=== PATIENT | male | born 1980 | race Caucasian/White ===

== ENCOUNTER 2017-02-07 04:07 | Emergency (ER) | payer BC ==
--- NOTE | 2017-02-07 06:44 | ER ---
ADMIT: 02/07/2017 RM/LOC: ER [facility] MR#: [id number] [address] [address] KEVIN LOPEZ , Emergency Room Report SEX: M AGE: 36 : 1980 DATE: 02/07/2017 The patient is a 36-year-old [place] male, complaining of pleuritic left scapular pain without URI symptoms, injury, fevers, chills, cough, or hemoptysis. Past medical history entirely unremarkable. Exam remarkable for nontoxic, afebrile male. Splinting respirations. Chest x-ray PA and lateral unremarkable. Normal CBC, CMP, CRP, lactic, troponin, and D-dimer. Received IV fluids and Toradol with relief of pain. EKG showed sinus rhythm without ST- T or Q-wave change. Discharged with naproxen 500 mg b.i.d. #30. Follow up Dr. Oliveros as needed. Hiren Lackey MD/ jameel JOB #: [id number] CC: Hiren Lackey MD, Attending Physician Odalis Oliveros MD
== END 2017-02-07 05:26 | disposition home or self-care (01) ==
LOC: ER 04:07
DX: R09.1 Pleurisy (principal)